=== PATIENT | female | born 1960 | race Caucasian/White ===

== ENCOUNTER → 2017-03-02 | Outpatient (CLI) | payer BC ==
--- NOTE | 2017-03-02 22:52 | MR ---
EXAMINATION TYPE: MR brain wo con DATE OF EXAM: 03/02/2017 COMPARISON: NONE HISTORY: 56-year-old female with vertigo, Follow up for Chiari TECHNIQUE: Multiplanar, multisequence images of the brain and brainstem were acquired without IV con trast. Diffusion weighted imaging is performed. FINDINGS: No evidence for acute infarction, hemorrhage, mass, mass effect, midline shift, herniation, effacemen t of basal cisterns, or extra-axial fluid collection. Redemonstrated prior suboccipital decompression for Chiari malformation. The appearance way mild chilkoot ding at the foramen of [place] is unchanged. Midline structures otherwise demonstrate normal morpholo gy. The ventricles and sulci are age-appropriate with similar mild cerebral cortical atrophy. Major intracranial flow voids are intact. T2/FLAIR weighted sequence again shows minimal burden of right white matter change in the subcortical and periventricular region of the bifrontal lobes numbering less than 5 on each site. The cerebellopontine angles and posterior cranial fossa appear clear. The visualized sinuses are clear and the globes are intact. Minimal trapped fluid in the inferior rig ht mastoid air cells show some improvement from 07/19/2015. Again, correlate for any mastoid pain to ex clude mastoiditis. IMPRESSION: 1. Stable postsurgical changes of suboccipital decompression for Chiari malformation. 2. Stable chronic T2 bright white matter change in the bifrontal lobes with minimal overall burden. N onspecific, likely relating to chronic small vessel ischemic disease. 3. No acute intracranial abnormality seen.
== END | disposition home or self-care (01) ==
LOC: RADMRIMAIN 17:16
PROVIDERS: ATTEND Family Medicine
DX: R90.89 Other abnormal findings on diagnostic imaging of central nervous system (principal); R42 Dizziness and giddiness; Z98.890 Other specified postprocedural states
CPT/HCPCS: 70551

== ENCOUNTER → 2018-07-28 | Outpatient (CLI) | payer OTHER ==
--- NOTE | 2018-07-29 14:37 | XR ---
EXAMINATION TYPE: XR lumbosacral spine min 4V DATE OF EXAM: 07/28/2018 COMPARISON: NONE HISTORY: Pain TECHNIQUE: 5 views FINDINGS: There are rods and screws fusing posteriorly lumbar spine from L3 to L5. There is multileve l laminectomy. There is degenerative disc space narrowing throughout the lumbar spine. There is a fir st-degree L4-5 spondylolisthesis. There is prosthetic disc at L4-5. Sacroiliac joints are intact. IMPRESSION: Posterior fusion surgery. Degenerative first-degree L5 spondylolisthesis. No acute bony a bnormality.
--- NOTE | 2018-07-29 14:38 | XR ---
EXAMINATION TYPE: XR Hip Bilateral Complete DATE OF EXAM: 07/28/2018 COMPARISON: NONE HISTORY: Chronic pain TECHNIQUE: 2 views each hip FINDINGS: I see no fracture nor dislocation. Hip joint spaces are fairly normal. There is no sign of hip dysplasia. IMPRESSION: Negative bilateral hip exam. No fracture.
== END | disposition home or self-care (01) ==
LOC: RADXRMAIN 15:41
PROVIDERS: ATTEND Family Medicine
DX: M43.16 Spondylolisthesis, lumbar region (principal); M25.552 Pain in left hip; M25.551 Pain in right hip; Z98.1 Arthrodesis status
CPT/HCPCS: 72110; 73521

== ENCOUNTER → 2018-11-03 | Outpatient (CLI) | payer OTHER ==
--- NOTE | 2018-11-03 10:02 | XR ---
EXAMINATION TYPE: XR cervical spine comp DATE OF EXAM: 11/03/2018 COMPARISON: NONE HISTORY: Pain TECHNIQUE: Four views are submitted. FINDINGS: The odontoid is intact. There are no compression deformities. The prevertebral soft tissue structur es are within normal limits. Severe degenerative disc disease C4-5 and C5-C6 with retrolisthesis and posterior endplate spurring. Anterior spurring noted at multiple levels. There is straightening of t he cervical spine. Suspect foraminal encroachment bilaterally at C4-5 and C5-C6. Density in along the anterior margin first rib likely related to the first rib. IMPRESSION: 1. Severe degenerative disc disease C4-5 and C5-C6 with posterior spondylosis. Bilateral foraminal en croachment. Suspect canal stenosis. 2. There is a nodular density in the right upper lobe. This may be related to the anterior margin of the first rib, however, apical lordotic view of the chest is recommended for confirmation.
== END | disposition home or self-care (01) ==
LOC: RADXRMAIN 08:07
PROVIDERS: ATTEND Family Medicine
DX: M50.321 Other cervical disc degeneration at C4-C5 level (principal); M47.812 Spondylosis without myelopathy or radiculopathy, cervical region
CPT/HCPCS: 72050

== ENCOUNTER → 2018-11-23 | Outpatient (CLI) | payer OTHER | END | disposition home or self-care (01) | LOC: RADMRIMAIN 11:22 | PROVIDERS: ATTEND Family Medicine | DX: Z53.9 Procedure and treatment not carried out, unspecified reason (principal) ==

== ENCOUNTER → 2018-11-30 | Outpatient (CLI) | payer OTHER ==
--- NOTE | 2018-11-30 11:04 | XR ---
EXAMINATION TYPE: XR chest 2V DATE OF EXAM: 11/30/2018 COMPARISON: Cervical spine 11/03/2018 HISTORY: Right upper lobe density TECHNIQUE: Frontal and lateral views of the chest are obtained. Apical lordotic image obtained. FINDINGS: There is no focal air space opacity, pleural effusion, or pneumothorax seen. The cardiac silhouette size is within normal limits. The osseous structures are intact. Hypertrophic margin to the anterior first rib on the right corresponds to the patient's nodular density seen in cervical spi ne. IMPRESSION: No acute cardiopulmonary process.
== END | disposition home or self-care (01) ==
LOC: RADXRMAIN 08:03
PROVIDERS: ATTEND Family Medicine
DX: J98.4 Other disorders of lung (principal)
CPT/HCPCS: 71046

== ENCOUNTER → 2018-12-11 | Outpatient (CLI) | payer OTHER | END | disposition home or self-care (01) | LOC: RADXRMAIN 05:54 | PROVIDERS: ATTEND Psychiatry & Neurology Neurology | DX: Z53.9 Procedure and treatment not carried out, unspecified reason (principal) ==

== ENCOUNTER → 2018-12-11 | Outpatient (CLI) | payer OTHER ==
--- NOTE | 2018-12-11 07:50 | MR ---
EXAMINATION TYPE: MR cervical spine wo con DATE OF EXAM: 12/11/2018 COMPARISON: 09/01/2012 HISTORY: Neck pain TECHNIQUE: Multiplanar, multisequence images of the cervical spine were acquired. FINDINGS: There appears to be evidence of a low occipital craniectomy. There is stable minimal retrolisthesis of C4 on C5 and C5 on C6. No definite abnormal signal seen within the spinal cord. The vertebral body heights are normal. There is moderate to severe disc space narrowing at C4-C5 and C5-C6 levels redemonstrated. Posterior disc herniations at these levels are seen. The bone marrow signal intensity is within normal limits. Axial images at the C2-C3 level show stable minimal central disc bulging but the neural foramen appea r patent bilaterally, this is stable from prior study. No Canal stenosis. Axial images at C3-C4 level show right greater than left uncovertebral joint hypertrophy facet arthropathy causing mild to moderate right-sided and mild left-sided neural foraminal encroachment stable from prior study. Axial images at the C4-C5 level show bilateral uncovertebral facet arthropathy with central broad-based posterior disc protrusion which abuts the anterior margin the spinal cord effacing anterior thecal sac. Slightly progressed from prior exam resulting in mild central stenosis. There is mild to moderate right-sided neural foraminal narrowing seen on current study similar to prior study. Axial images at C5-C6 level show uncovertebral facet arthropathy changes bilaterally, there is broad-based posterior disc protrusion effacing anterior thecal sac up to ventral surface of spinal cord resulting in mild/moderate canal st enosis. There is moderate bilateral neural foraminal narrowing seen, findings similar to prior study. Axial images at the C6-C7 level show broad-based central disc protrusion with annular tear abutting t he anterior margin the spinal cord. Mild facet arthropathy with no foraminal encroachment. Mild centr al stenosis. Axial images at C7-T1 level appear within normal limits. IMPRESSION- 1. Stable postsurgical changes compatible with decompression surgery in the posterior fossa. 2. Stable multilevel degenerative disc disease with severe changes at C4-5 and C5-C6. Retrolisthesis of both levels is stable. 3. Fairly stable appearing disc protrusions at multiple levels results in canal stenosis at C4-5 and C5-C6 with borderline canal stenosis C6-C7. 4. There is mild progression of a broad-based disc protrusion C6-C7 relative to the prior exam which now abuts the anterior margin of the spinal cord and results in thecal sac compression.
== END | disposition home or self-care (01) ==
LOC: RADMRIMAIN 05:51
PROVIDERS: ATTEND Family Medicine
DX: M48.02 Spinal stenosis, cervical region (principal); M50.10 Cervical disc disorder with radiculopathy, unspecified cervical region; Z98.890 Other specified postprocedural states
CPT/HCPCS: 72141

== ENCOUNTER → 2019-04-05 | Outpatient (CLI) | payer OTHER ==
[2019-04-05 13:11] LABS: Appearance,Urine Clear (Clear); Bilirubin,Urine Negative (Negative); Blood,Urine Small (Negative); Color,Urine Yellow; Glucose,Urine (UA) Negative (Negative); Ketones,Urine Negative (Negative); Leukocyte Esterase,Urine Trace (Negative); Nitrite,Urine Negative (Negative); Protein,Urine Negative (Negative); RBC,Urine 2 /hpf (0-5); Specific Gravity,Urine 1.015 (1.001-1.035); Squamous Epithelial Cell,Urine 1 /hpf (0-4); Urobilinogen,Urine <2.0 mg/dL (<2.0); WBC,Urine 1 /hpf (0-5)
== END ==
LOC: LABWHC1 11:52
DX: M47.812 Spondylosis without myelopathy or radiculopathy, cervical region (principal)
CPT/HCPCS: 36415; 81001; 93005

== ENCOUNTER → 2019-05-30 | Outpatient (CLI) | payer OTHER ==
--- NOTE | 2019-05-30 15:35 | XR ---
Cervical spine HISTORY: Status post anterior cervical fusion and discectomy 3 views of the cervical spine correlated to prior exam dated 11/03/2018 Patient is status post anterior cervical fusion and discectomy at C4-C7. Intervertebral spacing block s are present. There is near anatomic alignment. Overlying artifacts noted. IMPRESSION: Neurosurgical follow-up.
== END | disposition home or self-care (01) ==
LOC: RADXRMAIN 10:51
DX: Z47.89 Encounter for other orthopedic aftercare (principal); Z98.1 Arthrodesis status
CPT/HCPCS: 72040

== ENCOUNTER → 2019-08-31 | Outpatient (CLI) | payer OTHER ==
--- NOTE | 2019-08-31 09:39 | XR ---
Cervical spine Limited HISTORY: Cervical spondylosis, postop 3 views of the cervical spine correlated to prior exam 05/30/2019 Patient is status post anterior cervical fusion and discectomy at C4-C7, intervertebral spacing block s are present. Alignment is stable. Facet arthropathy changes are again noted. Question thoracic spin al curvature. IMPRESSION: Stable neurosurgical follow-up
== END | disposition home or self-care (01) ==
LOC: RADXRMAIN 08:33
DX: M47.812 Spondylosis without myelopathy or radiculopathy, cervical region (principal)
CPT/HCPCS: 72040

== ENCOUNTER → 2019-10-05 | Outpatient (CLI) | payer OTHER ==
--- NOTE | 2019-10-05 08:34 | XR ---
Right hip HISTORY: Right hip pain 2 views of the right hip Bone mineralization, joint spaces and alignment are maintained. IMPRESSION: No fracture or dislocation. No significant arthropathy evident.
== END | disposition home or self-care (01) ==
LOC: RADXRMAIN 07:35
PROVIDERS: ATTEND Family Medicine
DX: M25.551 Pain in right hip (principal)
CPT/HCPCS: 73502

== ENCOUNTER → 2020-01-16 | Outpatient (CLI) | payer OTHER ==
--- NOTE | 2020-01-16 12:28 | XR ---
EXAMINATION TYPE: XR skull complete DATE OF EXAM: 01/16/2020 COMPARISON: NONE HISTORY: MRI clearance TECHNIQUE: 4 views of the skull obtained FINDINGS: Dental hardware. Cervical spine fixation hardware. No additional radiopaque foreign bodies. The paranasal sinuses are well aerated. IMPRESSION: Cervical spine and dental hardware. No additional radiopaque foreign bodies. Patient is c leared for MRI.
== END | disposition home or self-care (01) ==
LOC: RADXRMAIN 07:48
PROVIDERS: ATTEND Family Medicine
DX: Z01.818 Encounter for other preprocedural examination (principal); Z97.2 Presence of dental prosthetic device (complete) (partial); Z96.9 Presence of functional implant, unspecified
CPT/HCPCS: 70260

== ENCOUNTER → 2021-08-26 | Outpatient (CLI) | payer MEDICARE, OTHER ==
[2021-08-26 08:17] LABS: Appearance,Urine Cloudy (Clear); Bacteria,Urine Occasional /hpf; Bilirubin,Urine Negative (Negative); Blood,Urine Negative (Negative); Color,Urine Yellow; Glucose,Urine (UA) Negative (Negative); Ketones,Urine Negative (Negative); Leukocyte Esterase,Urine Large (Negative); Mucus,Urine Occasional /hpf; Nitrite,Urine Negative (Negative); PH, Urine 5.5 (5.0-8.0); Protein,Urine Trace (Negative); RBC,Urine 13 /hpf (0-5); Specific Gravity,Urine 1.026 (1.001-1.035); Squamous Epithelial Cell,Urine 9 /hpf (0-4); WBC,Urine 10 /hpf (0-5)
[2021-08-26 08:42] LABS: INR 0.9 (<1.2)
[2021-08-26 08:43] LABS: Partial Thromboplastin Time 32.3 sec (22.0-30.0); Prothrombin Time 10.3 sec (9.0-12.0)
[2021-08-26 10:45] LABS: Basophils # (A) 0.01 X 10*3/uL (0.00-0.10); Basophils % (A) 0.3 %; Eosinophils # (A) 0.01 X 10*3/uL (0.04-0.35); Eosinophils % (A) 0.3 %; HCT 43.6 % (37.2-46.3); HGB 13.6 g/dL (12.0-15.0); Immature Grans, Automated 0.3 %; Lymphocytes # (A) 1.87 X 10*3/uL (0.90-5.00); Lymphocytes % (A) 50.1 %; MCH 28.2 pg (27.0-32.0); MCHC 31.2 g/dL (32.0-37.0); MCV 90.5 fL (80.0-97.0); Mean Platelet Volume 11.7 fL (9.5-12.2); Monocytes # (A) 0.47 X 10*3/uL (0.20-1.00); Monocytes % (A) 12.6 %; NRBC Per 100 WBC 0 /100 WBCS (0.0-0.0); Neutrophils # (A) 1.36 X 10*3/uL (1.80-7.70); Neutrophils % (A) 36.4 %; Platelet Count 214 X 10*3/uL (140-440); RBC 4.82 X 10*6/uL (4.10-5.20); RDW 13.9 % (11.5-14.5); WBC 3.73 X 10*3/uL (4.50-10.00)
[2021-08-26 10:55] LABS: African American GFR (CKD) 91.6 (60.0-200.0); Albumin 4.6 g/dL (3.8-4.9); Albumin/Globulin Ratio 1.44 (1.60-3.17); Calcium 9.7 mg/dL (8.7-10.3); Globulin 3.2 g/dL (1.6-3.3); Potassium 4.4 mmol/L (3.5-5.5); Prealbumin 21.9 mg/dL (18.0-42.0); Total Bilirubin 0.5 mg/dL (0.30-1.20); Total Protein 7.8 g/dL (6.2-8.2)
== END | disposition home or self-care (01) ==
LOC: LABWHC1 07:36
DX: Z01.812 Encounter for preprocedural laboratory examination (principal)
CPT/HCPCS: 36415; 80053; 81001; 83036; 84134; 85025; 85610; 85730; 87070; 93005

== ENCOUNTER → 2021-10-07 | Outpatient (CLI) | payer MEDICARE, OTHER ==
--- NOTE | 2021-10-07 09:39 | XR ---
MR spine HISTORY: Status post lumbar fusion 3 views the lumbar spine correlated prior exam 07/28/2018 There is been interval posterior fusion and laminectomies performed at L1-2, removal of the transpedi cular screws has been performed at L5. Allograft material is present in the paraspinal location along the L1-L2 levels. There is intervertebral spacing block at L4-5 as on prior. Slight spinal curvature could be positional. Mild anterolisthesis grade 1 L4-5 is again noted, there is loss of disc height at intervertebral levels, multilevel spondylosis. Lumbar vertebral bodies show preserved height and b one mineralization. IMPRESSION: Neurosurgical follow-up.
== END | disposition home or self-care (01) ==
LOC: RADXRMAIN 07:25
DX: M43.16 Spondylolisthesis, lumbar region (principal); M47.816 Spondylosis without myelopathy or radiculopathy, lumbar region; Z98.1 Arthrodesis status
CPT/HCPCS: 72100

== ENCOUNTER → 2022-02-01 | Outpatient (CLI) | payer MEDICARE, OTHER ==
--- NOTE | 2022-02-01 10:02 | XR ---
MR spine HISTORY: Spondylosis, postop 3 views of the lumbar spine correlated to prior exam 10/07/2021 Postoperative changes show a stable appearance. Allograft material noted in the paraspinal locations. Posterior fusion is noted at L1-L4, there is intervertebral spacing device at L4-5. There is multile elen laminectomy change. Loss of disc height is present at the intervertebral level, is multilevel vac uum phenomenon. Anterolisthesis grade 1 L4-5 is stable. The level spondylolysis is present. Lumbar ve rtebral bodies show preserved height and bone mineralization. Indeterminate calcifications are present within the pelvis some of which are likely vascular. Surgica l clips are present in the right upper quadrant. IMPRESSION: Neurosurgical follow-up.
== END | disposition home or self-care (01) ==
LOC: RADXRMAIN 08:32
DX: M47.817 Spondylosis without myelopathy or radiculopathy, lumbosacral region (principal)
CPT/HCPCS: 72100

== ENCOUNTER → 2023-02-22 | Outpatient (CLI) | payer OTHER ==
--- NOTE | 2023-02-22 08:46 | CT ---
EXAMINATION TYPE: CT abdomen pelvis wo con CT DLP: 1231 mGycm, Automated exposure control for dose reduction was used. DATE OF EXAM: 02/22/2023 6:33 AM COMPARISON: None. CLINICAL INDICATION:Female, 62 years old with history of R31.1 HEMATURIA; Blood came back in urine 3 months TECHNIQUE: Axial CT of the abdomen and pelvis. Sagittal and coronal reformats were created on a [employer] workstation. Contrast used: mL of , (none if empty) Oral contrast used: without Oral Contrast (none if empty) FINDINGS: LOWER CHEST: Unremarkable ABDOMEN LIVER: Unremarkable GALLBLADDER AND BILE DUCTS: Layering increased densities within the lumen consistent with gallstones are present. PANCREAS: Unremarkable. SPLEEN: Unremarkable. ADRENAL GLANDS: Unremarkable. KIDNEYS AND URETERS: Left obstructing 4 mm calculus at the proximal left ureter. Mild left hydronephr osis. No right obstructive atelectasis or hydronephrosis. PELVIS BLADDER: Unremarkable REPRODUCTIVE: Unremarkable. ABDOMEN & PELVIS STOMACH AND BOWEL: No evidence of bowel obstruction. PERITONEUM/RETROPERITONEUM: No evidence of pneumoperitoneum or free fluid. VASCULATURE: No evidence of aortic aneurysm. MUSCULOSKELETAL: No acute osseous abnormalities, post surgical changes of lumbar spine without eviden ce of fracture. Hardware extends from L1 to L4 with hardware intact. This documents L4-L5. LYMPH NODES: No gross evidence for lymphadenopathy. SOFT TISSUE/ABDOMINAL WALL: Fat-containing buccal hernia. IMPRESSION: Left obstructing 4 mm calculus at the proximal left ureter. There is mild left hydronephrosis.
== END | disposition home or self-care (01) ==
LOC: RADCTMAIN 06:06
PROVIDERS: ATTEND Urology
DX: N13.2 Hydronephrosis with renal and ureteral calculous obstruction (principal); R31.1 Benign essential microscopic hematuria
CPT/HCPCS: 74176

== ENCOUNTER 2023-06-21 11:18 | Day surgery (SDC) | payer MEDICARE, OTHER ==
[~2023-06-21 11:18] MED LIST: LIDOCAINE 1% (10MG/ML) FOR IV START INTRADERMA PRN
[2023-06-21] MEDS: LACTATED RINGERS 1,000 ML IV SCH (11:51)
[2023-06-21] MEDS ORDERED: LIDOCAINE 1% INJ 10MG/ML (20 ML MDV) ONE (11:57)
[2023-06-21] MEDS ORDERED: PROPOFOL 10 MG/ML 20 ML VIAL IV ONE (11:57)
--- NOTE | 2023-06-21 12:04 | P.GSHP ---
History of Present Illness H&P Date: 06/21/23 Chief Complaint: Change in bowel habits 62-year-old female here for colonoscopy. Family history of colon cancer in her sister. Last colonoscopy about 10 years ago. Lately has had narrower stools. No rectal bleeding. Past Medical History Past Medical History: Eye Disorder, Fibromyalgia, GERD/Reflux, Musculoskeletal Disorder, Osteoarthritis (OA), Sleep Apnea/CPAP/BIPAP Additional Past Medical History / Comment(s): change in bowel habits, hx. colon polyps, supposed to use CPAP, glaucoma History of Any Multi-Drug Resistant Organisms: None Reported Past Surgical History: Back Surgery, Cholecystectomy, Hysterectomy Additional Past Surgical History / Comment(s): colonoscopies, back surg. x2, brain surg. to repair chiari malformation, neck fusion, russel cataracts removed Past Anesthesia/Blood Transfusion Reactions: No Reported Reaction Smoking Status: Never smoker - Past Family History Sister(s) Family Medical History: Cancer Additional Family Medical History / Comment(s): colon Medications and Allergies Home Medications Medication Instructions Recorded Confirmed Type Atorvastatin [Lipitor] 10 mg PO DAILY 06/16/23 06/21/23 History DULoxetine HCL [Cymbalta] 30 mg PO DAILY 06/16/23 06/21/23 History Gabapentin [Neurontin] 600 mg PO HS 06/16/23 06/21/23 History Omeprazole [PriLOSEC] 20 mg PO [id number]-[id number] 06/16/23 06/21/23 History Sertraline [Zoloft] 50 mg PO DAILY 06/16/23 06/21/23 History Travoprost [Travatan Z 0.004%] 2.5 ml OP DAILY 06/16/23 06/21/23 History Allergies Allergy/AdvReac Type Severity Reaction Status Date / Time Iodinated Contrast Media Allergy throat Verified 06/21/23 11:41 swelling Penicillins Allergy Rash/Hives Verified 06/21/23 11:41 Surgical - Exam Vital Signs Temp Pulse Resp BP Pulse Ox 97.4 F L 97 18 146/64 93 L 06/21/23 11:44 06/21/23 11:44 06/21/23 11:44 06/21/23 11:44 06/21/23 11:44 Physical exam: General: Well-developed, well-nourished HEENT: Normocephalic, sclerae nonicteric Abdomen: Nontender, nondistended Extremities: No edema Neuro: Alert and oriented Assessment and Plan (1) Change in bowel habits Narrative/Plan: Will proceed with colonoscopy at this time Current Visit: Yes Status: Acute Code(s): R19.4 - CHANGE IN BOWEL HABIT SNOMED Code(s): 50960209
[2023-06-21 12:05] VITALS: TEMP 97.4
--- NOTE | 2023-06-21 12:25 | P.PCN ---
Date of Procedure: 06/21/23 Procedure(s) Performed: PREOPERATIVE DIAGNOSIS: Change in bowel habits, family history of colon cancer POSTOPERATIVE DIAGNOSIS: Ascending colon polyp, sigmoid colon polyp, diverticulosis PROCEDURE: Colonoscopy with snare polypectomy ANESTHESIA: MAC SURGEON: Tim Barroso M.D. SPECIMENS: Polyps ENDOSCOPIC PROCEDURE: The patient was placed on the endoscopy table in the left decubitus position. The Olympus colonoscope was inserted into the anus and passed under direct visualization to the base of the cecum. The appendiceal orifice was visualized. From that point the scope was slowly withdrawn inspecting all surfaces carefully. There were no neoplastic inflammatory or polypoid lesions throughout the cecum. In the ascending colon a small polyp was seen and removed using the cold snare technique. The remainder of the ascending transverse and descending colon appeared normal. In the sigmoid colon at 28 cm a larger polyp was seen and also removed using the snare with cautery technique. The remainder of the sigmoid and rectum was normal. The patient had mild left- sided diverticulosis. Digital rectal examination was normal. The patient was taken to the recovery room in stable condition per anesthesia guidelines. RECOMMENDATIONS: Await biopsy results. Repeat colonoscopy 5 years.
[2023-06-21 12:35] VITALS: RESP 16
[2023-06-21 13:04] VITALS: BP 112/80; PULSE 72
== END 2023-06-21 13:34 | disposition home or self-care (01) ==
LOC: ORWHC2ENDO 11:18
PROVIDERS: ATTEND Surgery
DX: D12.5 Benign neoplasm of sigmoid colon (principal); K57.30 Diverticulosis of large intestine without perforation or abscess without bleeding; G47.33 Obstructive sleep apnea (adult) (pediatric); K21.9 Gastro-esophageal reflux disease without esophagitis; M19.90 Unspecified osteoarthritis, unspecified site; M79.7 Fibromyalgia; Z88.0 Allergy status to penicillin; Z90.49 Acquired absence of other specified parts of digestive tract; Z80.0 Family history of malignant neoplasm of digestive organs; Z91.041 Radiographic dye allergy status; Z79.899 Other long term (current) drug therapy
CPT/HCPCS: 88305; 45385; J2001; J2704